=== PATIENT | male | born 1955 | race Caucasian/White ===

== ENCOUNTER 2017-04-04 17:16 | Emergency (ER) | payer OTHER ==
[~2017-04-04] VITALS: Ht 170.2 cm; Wt 80.0 kg
[2017-04-04 17:18] VITALS: BP 182/89; PULSE 75; RESP 20; TEMP 98.9; O2SAT 99
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
[2017-04-04] MEDS ORDERED: CYCL5TAB PO ×2 (20:26)
== END 2017-04-04 22:06 | disposition home or self-care (01) ==
LOC: NEPE 17:16
DX: S09.90XA Unspecified injury of head, initial encounter (principal); S40.012A Contusion of left shoulder, initial encounter; S60.221A Contusion of right hand, initial encounter; S70.11XA Contusion of right thigh, initial encounter; S00.512A Abrasion of oral cavity, initial encounter; M79.1 Myalgia; Z86.59 Personal history of other mental and behavioral disorders; V29.88XA Motorcycle rider (driver) (passenger) injured in other specified transport accidents, initial encounter
CPT/HCPCS: 70450; 70486; 73030; 73130; 73552; 99285